=== PATIENT | male | born 1980 | race Asian ===

== ENCOUNTER 2024-05-29 16:03 | Emergency (ER) | payer BC, MEDICAID ==
[~2024-05-29] VITALS: Ht 170.2 cm; Wt 121.1 kg
[2024-05-29 16:23] VITALS: BP 142/83; TEMP 99
[2024-05-29] MEDS ORDERED: ERYT3.5O9 EACHEYE (17:02)
[2024-05-29 17:07] VITALS: O2SAT 98
== END 2024-05-29 17:08 | disposition home or self-care (01) ==
LOC: ER 16:09
DX: H00.014 Hordeolum externum left upper eyelid (principal)